=== PATIENT | female | born 1990 | race African-American/Black ===

== ENCOUNTER 2019-06-09 11:12 | Inpatient (IN) | payer OTHER ==
--- NOTE | 2019-06-09 11:26 | PDOC ---
Rapid Medical Evaluation Time Seen by Provider: 06/09/19 11:24 Medical Evaluation: Allergies Allergy/AdvReac Type Severity Reaction Status Date / Time No Known Drug Allergies Allergy Verified 06/23/13 12:51 Vital Signs Temp Pulse Resp BP Pulse Ox 98.3 F 89 18 135/83 99 06/09/19 11:19 06/09/19 11:19 06/09/19 11:19 06/09/19 11:19 06/09/19 11:19 06/09/19 11:24 Patient is 29F here today with goiter, weight loss. Recently admitted to [facility] for goiter. Unsure, but patient thought she was due to get surgery and carotid. Left AMA and came here. Exam notable for goiter. Vitals normal and stable. Patient to main ED. Discharge Disposition - Diagnosis Goiter - Discharge Dispostion Condition at time of disposition: Stable - Referrals - Patient Instructions - Post Discharge Activity
[2019-06-09 12:30] LABS: HEMATOCRIT 33.1 % (32.4-45.2); HEMOGLOBIN 10.8 GM/dL (10.7-15.3); MCH 25.3 pg (25.7-33.7); MCHC 32.5 g/dl (32.0-36.0); MEAN CELL VOLUME 77.8 fl (80-96); MEAN PLT VOLUME 11.5 fl (7.5-11.1); PLATELET COUNT 244 K/MM3 (134-434); RBC 4.26 M/mm3 (3.60-5.2); RDW 14.4 % (11.6-15.6); WHITE BLOOD COUNT 5.9 K/mm3 (4.0-10.0)
--- NOTE | 2019-06-09 13:05 | PDOC ---
History of Present Illness - General Chief Complaint: Head/Neck problem Stated Complaint: THYROID PROBLEM Time Seen by Provider: 06/09/19 11:24 History Source: Patient Exam Limitations: No Limitations - History of Present Illness Initial Comments: 29 yo F with no past medical history presents with confirmed diagnosis of hyperthyroidism from [facility]. Per the patient, she left [facility] today because of inability to wait for consultation by the stonework supervisor. She states that when she left the facility, she was not provided with medications, thus is concerned of not having controlled hyperthyroidism. Currently, the patient has no symptoms, but earlier did have intermittent SOB and palpitations that terminated on their own. Per the patient, she denies the following: ingestion of levothyroxine, flight of ideas, fevers, chills, headache, nausea, vomiting, chest pain, abdominal pain, dysuria, and leg pain/swelling. Allergies: NKDA Past History - Past Medical History Allergies/Adverse Reactions: Allergies Allergy/AdvReac Type Severity Reaction Status Date / Time No Known Drug Allergies Allergy Verified 06/09/19 11:24 Home Medications: Ambulatory Orders No Home Medications 0 dose .ROUTE UTDICT 06/23/13 Acetaminophen [Tylenol .Regular Strength -] 650 mg PO Q4H PRN tablet 06/10/19 Methimazole [Tapazole -] 10 mg PO TID #90 tablet 06/10/19 propRANOLol HCL [Inderal -] 10 mg PO TID #90 tablet 06/10/19 Anemia: No Asthma: No Cancer: No Cardiac Disorders: No CVA: No COPD: No CHF: No Dementia: No Diabetes: No GI Disorders: No Disorders: No HTN: No Hypercholesterolemia: No Liver Disease: No Seizures: No Thyroid Disease: No - Reproductive History (#): 3 Para: 1 Therapeutic (s) & number: Yes (1) Spontaneous : 1 - Psycho Social/Smoking Cessation Hx Smoking History: Never smoked Have you smoked in the past 12 months: No Number of Cigarettes Smoked Daily: 0 Hx Alcohol Use: No Drug/Substance Use Hx: Yes (MARIJUANA) Substance Use Type: None Hx Substance Use Treatment: No Review of Systems - Review of Systems Able to Perform ROS?: Yes Is the patient limited Mohawk proficient: No Constitutional: No: Chills, Diaphoresis, Fever, Weakness HEENTM: Yes: Throat Swelling (goiter noted). No: Eye Pain, Ear Pain, Nose Pain , Throat Pain, Mouth Pain Respiratory: No: Cough, Shortness of Breath, Hemoptysis Cardiac (ROS): Yes: Palpitations. No: Chest Pain, Lightheadedness, Chest Tightness ABD/GI: No: Constipated, Diarrhea, Nausea, Rectal Bleeding, Vomiting, Tarry Stools : No: Burning, Dysuria, Hematuria Musculoskeletal: No: Back Pain, Joint Pain, Neck Pain Integumentary: No: Bruising, Erythema, Rash Neurological: No: Headache, Numbness, Tingling, Tremors Psychiatric: No: Change in Appetite Endocrine: No: Unexplained Weight Loss Hematologic/Lymphatic: No: Anemia *Physical Exam - Vital Signs Last Vital Signs Temp Pulse Resp BP Pulse Ox 98.3 F 89 18 135/83 99 06/09/19 11:19 06/09/19 11:19 06/09/19 11:19 06/09/19 11:19 06/09/19 11:19 - Physical Exam General Appearance: Yes: Nourished, Appropriately Dressed, Other (no exopthalmous. fine tremor noted in the hands bilaterally). No: Apparent Distress, Intoxicated HEENT: positive: EOMI, CALVIN, Normal ENT Inspection, Normal Voice, Symmetrical, TMs Normal, Pharynx Normal, Hearing Grossly Normal. negative: Pale Conjunctivae , Scleral Icterus (R), Scleral Icterus (L), Muffled/Hoarse voice, Pharyngeal Erythema, Tonsillar Exudate, Tonsillar Erythema, Nasal Congestion, Rhinorrhea, Excessive drooling Neck: positive: Trachea midline, Supple. negative: Tender, Normal Thyroid ( large goiter noted), Lymphadenopathy (R), Lymphadenopathy (L) Respiratory/Chest: positive: Lungs Clear, Normal Breath Sounds. negative: Chest Tender, Respiratory Distress, Accessory Muscle Use, Rhonchi, Stridor, Wheezing Cardiovascular: positive: Regular Rhythm, Regular Rate, S1, S2. negative: Systolic Murmur Gastrointestinal/Abdominal: positive: Normal Bowel Sounds, Flat, Soft. negative : Tender, Distended, Guarding, Rebound Lymphatic: negative: Adenopathy Musculoskeletal: positive: Normal Inspection. negative: CVA Tenderness, Vertebral Tenderness Extremity: positive: Normal Capillary Refill, Normal Inspection, Normal Range of Motion. negative: Tender, Swelling, Calf Tenderness Integumentary: positive: Normal Color, Dry, Warm. negative: Swelling, Ecchymosis Neurologic: positive: Fully Oriented, Alert, Normal Mood/Affect, Motor Strength 5/5. negative: EOM Palsy, Facial Droop, Numbness, Sensory Deficit ED Treatment Course - LABORATORY CBC & Chemistry Diagram: 06/10/19 07:20 06/10/19 07:20 - ADDITIONAL ORDERS Additional order review: 06/09/19 11:22 RBC 4.26 MCV 77.8 L MCHC 32.5 RDW 14.4 MPV 11.5 H Medical Decision Making - Medical Decision Making 29 yo F with no past medical history presents with confirmed diagnosis of hyperthyroidism from [facility]. Per the patient, she left [facility] today because of inability to wait for consultation by the stonework supervisor. Initial vitals: Initial Vital Signs Temp Pulse Resp BP Pulse Ox 98.3 F 89 18 135/83 99 06/09/19 11:19 06/09/19 11:19 06/09/19 11:19 06/09/19 11:19 06/09/19 11:19 Work up; ddx: thyroid storm vs hyperthyroidism vs thyroiditis vs graves Laboratory Tests 06/09/19 06/09/19 11:22 11:26 WBC 5.9 RBC 4.26 Hgb 10.8 Hct 33.1 MCV 77.8 L MCH 25.3 L D MCHC 32.5 RDW 14.4 Plt Count 244 MPV 11.5 H Sodium 138 Potassium 4.3 Chloride 107 Carbon Dioxide 26 Anion Gap 5 L BUN 9.3 Creatinine 0.4 L Est GFR (CKD-EPI)AfAm 161.99 Est GFR (CKD-EPI)NonAf 139.77 Random Glucose 88 Calcium 9.1 Total Bilirubin 0.5 AST 37 ALT 40 Alkaline Phosphatase 160 H Total Protein 7.5 Albumin 2.9 L TSH 0.01 L Free T4 2.98 H free T4 is 2.98 with TSH 0.01. Patient is in hyperthyroidism but not storm. Will admit patient for further management and optimization. Discharge - Discharge Information Problems reviewed: Yes Clinical Impression/Diagnosis: Goiter Condition: Stable - Follow up/Referral - Patient Discharge Instructions - Post Discharge Activity
[2019-06-09 13:12] LABS: ALBUMIN 2.9 g/dl (3.4-5.0); BILIRUBIN,TOTAL 0.5 mg/dL (0.2-1); BLOOD UREA NITROGEN 9.3 mg/dL (7-18); CALCIUM 9.1 mg/dL (8.5-10.1); CREATININE 0.4 mg/dL (0.55-1.3); POTASSIUM 4.3 mmol/L (3.5-5.1); TOT PROT 7.5 g/dl (6.4-8.2)
--- NOTE | 2019-06-09 13:33 | PDOC ---
Attending Attestation - Resident Resident Name: Scott Wilson - ED Attending Attestation I have performed the following: I have examined & evaluated the patient, The case was reviewed & discussed with the resident, I agree w/resident's findings & plan, Exceptions are as noted - HPI HPI: 06/09/19 14:05 29y F no pmhx presents with hyperthyroidism - [facility] and came here - frustration dueto wait to see endcrinology. pt states sh was given propanolol but doesnt think she was started on any thyroid medicine. Pt denies any current complaints, states she had notcied throat swelling for the past year or so and with palpitations and sob. but currently feels well. GENERAL: The patient is awake, alert, and fully oriented, Nontoxic - in no acute distress. HEAD: Normocephalic, atraumatic. EYES: extraocular movements intact, sclera anicteric, conjunctiva clear. ENT: Normal voice, Moist mucous membranes. NECK: Normal range of motion, supple, +goiter LUNGS: Breath sounds equal, clear to auscultation bilaterally. No wheezes, no rhonchi, no rales. HEART: Regular rate and rhythm, without murmur, rub or gallop. ABDOMEN: Soft, nontender, No guarding, no rebound.No CVA tenderness EXTREMITIES: Normal range of motion, no edema. No cyanosis. No erythema, or tenderness. NEUROLOGICAL: No facial assymetry, Normal speech, PSYCH: Normal mood, normal affect. SKIN: Warm, Dry, normal turgor suspect pt has partially treatment of thyroid storm/hyperthroidism will admit for further management - Physicial Exam PE: 06/15/19 07:28 see above - Medical Decision Making 06/09/19 15:06 case dw inpatient team accepted for admission for further management Heart Score/ECG Review - ECG Impressions Comment:: 06/09/19 14:12 EKG sinus rhthm, rate of [address] wave changes sugestive of acute ischemia
--- NOTE | 2019-06-09 15:02 | HP ---
Admitting History and Physical - Primary Care Physician PCP: Dima Davis - Admission Chief Complaint: Hyperthyroidism History of Present Illness: Patient is a 29 y/o female with no significant past medical history. She originally presented to [facility] ER with complaints of palpitations and difficulty breathing. While in [facility] she was noted with low TSH and admitted for Hyperthyroidism. She was started on propanolol for her palpitations and tachycardia. She states that while there she was not seen by an Rides Attendant and would not see one until tomorrow so she signed out AMA and came to [facility] ER. In ER noted with TSH 0.01 and T4 2.98. Denies palpitations , chest pain, SOB, dizziness. History Source: Patient Limitations to Obtaining History: No Limitations - Past Medical History ...LMP: 04/19/12 Endocrine: Yes: Hyperthyroidism - Past Surgical History Past Surgical History: Yes: None - Smoking History Smoking history: Never smoked Have you smoked in the past 12 months: No Aproximately how many cigarettes per day: 0 - Alcohol/Substance Use Hx Alcohol Use: No - Social History ADL: Independent History of Recent Travel: No Home Medications - Allergies Allergies/Adverse Reactions: Allergies Allergy/AdvReac Type Severity Reaction Status Date / Time No Known Drug Allergies Allergy Verified 06/09/19 11:24 - Home Medications Home Medications: Ambulatory Orders No Home Medications 0 dose .ROUTE UTDICT 06/23/13 Review of Systems - Review of Systems Constitutional: reports: Loss of Appetite, Unintentional Wgt. Loss Eyes: reports: No Symptoms HENT: reports: No Symptoms Neck: reports: Other (goiter) Cardiovascular: reports: No Symptoms Respiratory: reports: Cough Gastrointestinal: reports: Diarrhea Genitourinary: reports: No Symptoms Breasts: reports: No Symptoms Reported Musculoskeletal: reports: No Symptoms Integumentary: reports: No Symptoms Neurological: reports: No Symptoms Endocrine: reports: Excessive Sweating, Increased Hunger, Increased Thirst, Unexplained Weight Loss Hematology/Lymphatic: reports: No Symptoms Psychiatric: reports: No Symptoms Physical Examination Vital Signs: Vital Signs Temperature 98.3 F 06/09/19 11:19 Pulse Rate 89 06/09/19 11:19 Respiratory Rate 18 06/09/19 11:19 Blood Pressure 135/83 06/09/19 11:19 O2 Sat by Pulse Oximetry (%) 99 06/09/19 11:19 Constitutional: Yes: No Distress, Calm Eyes: Yes: Conjunctiva Clear HENT: Yes: Atraumatic Neck: Yes: Other (goiter) Cardiovascular: Yes: Regular Rate and Rhythm Respiratory: Yes: Regular Gastrointestinal: Yes: Normal Bowel Sounds, Soft Musculoskeletal: Yes: WNL Extremities: Yes: WNL Edema: No Neurological: Yes: Alert, Oriented Psychiatric: Yes: Alert, Oriented Labs: CBC, BMP 06/09/19 11:22 06/09/19 11:26 Problem List - Problems (1) Hyperthyroidism Assessment/Plan: -Endocrinology consult -TSH 0.01 and TSH 2.98 -Thryoid US Code(s): E05.90 - THYROTOXICOSIS, UNSP WITHOUT THYROTOXIC CRISIS OR STORM (2) Goiter Assessment/Plan: -Endocrinology consult -TSH 0.01 and TSH 2.98 -Thryoid US Code(s): E04.9 - NONTOXIC GOITER, UNSPECIFIED
[2019-06-09] MEDS ORDERED: ACETAMINOPHEN 325 MG TABLET (FP) PO PRN (15:05)
[2019-06-09 18:49] VITALS: BMI 27.6
[2019-06-09] MEDS: HEPARIN NA (PORCINE) 5,000 UNITS/ML 1ML VIAL SQ SCH (21:30)
[2019-06-09] MEDS: METHIMAZOLE 10 MG TABLET (FP) PO SCH (21:58)
--- NOTE | 2019-06-10 01:00 | CONSULT ---
Consult Consult Specialty:: Endocrine Referred by:: Aubrey RM Reason for Consultation:: Hyperthyroidism - History of Present Illness Chief Complaint: palpitation and sweats History of Present Illness: 29 y/o female with no significant past medical history. has had recent 40lb weight loss,palpitation,anxiety,tremors,difficulty concentrating,found to have hyperthyroidism.she denies chest pain,fever,cough,nausea or vomiting. - Past Medical History ...LMP: 05/22/19 Endocrine: Yes: Hyperthyroidism - Past Surgical History Past Surgical History: Yes: None - Alcohol/Substance Use Hx Alcohol Use: No - Smoking History Smoking history: Never smoked Have you smoked in the past 12 months: No Aproximately how many cigarettes per day: 0 - Social History ADL: Independent History of Recent Travel: No Home Medications - Allergies Allergies/Adverse Reactions: Allergies Allergy/AdvReac Type Severity Reaction Status Date / Time No Known Drug Allergies Allergy Verified 06/09/19 11:24 - Home Medications Home Medications: Ambulatory Orders No Home Medications 0 dose .ROUTE UTDICT 06/23/13 Review of Systems - Review of Systems Constitutional: reports: Unintentional Wgt. Loss Eyes: reports: No Symptoms HENT: reports: No Symptoms Neck: reports: No Symptoms Cardiovascular: reports: Palpitations, Shortness of Breath Respiratory: reports: Exercise Intolerance, SOB on Exertion Gastrointestinal: reports: No Symptoms Genitourinary: reports: No Symptoms Musculoskeletal: reports: Muscle Cramps Neurological: reports: Tremors, Weakness Endocrine: reports: Intolerance to Heat, Unexplained Weight Loss Physical Exam Vital Signs: Vital Signs Temperature 97.8 F 06/09/19 23:00 Pulse Rate 93 H 06/09/19 23:00 Respiratory Rate 18 06/09/19 23:00 Blood Pressure 138/83 06/09/19 23:00 O2 Sat by Pulse Oximetry (%) 99 06/09/19 21:00 Constitutional: Yes: Anxious Eyes: Yes: EOM Intact HENT: Yes: Normocephalic Neck: Yes: Thyromegaly Cardiovascular: Yes: Tachycardia Respiratory: Yes: CTA Bilaterally Gastrointestinal: Yes: Normal Bowel Sounds ...Rectal Exam: Yes: Deferred Renal/: Yes: WNL Musculoskeletal: Yes: Muscle Weakness Extremities: Yes: WNL Edema: No Neurological: Yes: Alert, Oriented, Tremors Labs: CBC, BMP 06/09/19 11:22 06/09/19 11:26 Problem List - Problems (1) Goiter Problems reviewed: Yes Code(s): E04.9 - NONTOXIC GOITER, UNSPECIFIED (2) Hyperthyroidism Problems reviewed: Yes Code(s): E05.90 - THYROTOXICOSIS, UNSP WITHOUT THYROTOXIC CRISIS OR STORM (3) demise Problems reviewed: Yes Code(s): PNS3536 - Assessment/Plan Current Active Problems Goiter (Acute) Hyperthyroidism (Acute) Abnormal Lab Results 06/09/19 06/09/19 11:22 11:26 MCV 77.8 L MCH 25.3 L D MPV 11.5 H Anion Gap 5 L Creatinine 0.4 L Alkaline Phosphatase 160 H Albumin 2.9 L TSH 0.01 L Free T4 2.98 H plan: start methimazole 10mg tid propranolo 10mg tid follow up tsh free t4 outpatient
[2019-06-10] MEDS: METHIMAZOLE 10 MG TABLET (FP) PO SCH (05:47)
[2019-06-10 08:19] LABS: BASO % 0.2 % (0-2.0); EOS % 5.9 % (0-4.5); HEMATOCRIT 30.6 % (32.4-45.2); HEMOGLOBIN 10.3 GM/dL (10.7-15.3); LYMPH % 35.6 % (8-40); MCHC 33.6 g/dl (32.0-36.0); MEAN CELL VOLUME 77.5 fl (80-96); MEAN PLT VOLUME 11.3 fl (7.5-11.1); MONO % 8.4 % (3.8-10.2); NEUT % 49.9 % (42.8-82.8); PLATELET COUNT 214 K/MM3 (134-434); RBC 3.95 M/mm3 (3.60-5.2)
[2019-06-10 08:56] LABS: ALBUMIN 2.7 g/dl (3.4-5.0); BILIRUBIN,TOTAL 0.5 mg/dL (0.2-1); BLOOD UREA NITROGEN 10.1 mg/dL (7-18); CALCIUM 8.9 mg/dL (8.5-10.1); CREATININE 0.3 mg/dL (0.55-1.3); MAGNESIUM 1.7 mg/dL (1.8-2.4); PHOSPHOROUS 4.4 mg/dL (2.5-4.9); POTASSIUM 3.8 mmol/L (3.5-5.1); TOT PROT 6.8 g/dl (6.4-8.2)
[2019-06-10] MEDS: HEPARIN NA (PORCINE) 5,000 UNITS/ML 1ML VIAL SQ SCH (09:56)
--- NOTE | 2019-06-10 10:43 | EKG ---
Test Reason : Blood Pressure : / mmHG Vent. Rate : 089 BPM Atrial Rate : 089 BPM P-R Int : 160 ms QRS Dur : 086 ms QT Int : 396 ms P-R-T Axes : 067 042 051 degrees QTc Int : 481 ms NORMAL SINUS RHYTHM BIATRIAL ENLARGEMENT LEFT VENTRICULAR HYPERTROPHY PROLONGED QT ABNORMAL ECG NO PREVIOUS ECGS AVAILABLE Confirmed by TERRY UP MD ([id number]) on 06/10/2019 10:43:12 AM Referred By: Confirmed By:TERRY UP MD
--- NOTE | 2019-06-10 10:44 | DS ---
Physical Examination Vital Signs: Vital Signs Temperature 97.6 F 06/10/19 05:00 Pulse Rate 96 H 06/10/19 05:00 Respiratory Rate 06/10/19 05:00 Blood Pressure 123/67 06/10/19 05:00 O2 Sat by Pulse Oximetry (%) 99 06/09/19 21:00 Findings/Remarks: EVENTS AND NOTES REVIEWED DENIES CP/SOB Constitutional: Yes: No Distress Cardiovascular: Yes: Regular Rate and Rhythm Respiratory: Yes: WNL Gastrointestinal: Yes: WNL Renal/: Yes: WNL Musculoskeletal: Yes: WNL Extremities: Yes: WNL Edema: No Labs: CBC, BMP 06/10/19 07:20 06/10/19 07:20 Discharge Summary Problems reviewed: Yes Reason For Visit: GOITER Current Active Problems Goiter (Acute) Hyperthyroidism (Acute) Procedures: Principal: LABS/XRAYS Hospital Course: ADMITTED ACUTE THYROID STORM TREATED AND F/U OUTPATIENT Plan of Treatment: PROPANOLOL AND TAPAZOLE TID SEE YOUR PRIMARY DOCTOR AND ENDOCRINE SPECIALIST IN 1 WEEK Condition: Stable - Instructions Diet, Activity, Other Instructions: SEE YOUR PRIMARY DOCTOR IN 1 WEEK AND SPECIALIST FOR ENDOCRINOLOGY Referrals: Dima Davis [Primary Care Provider] - Disposition: HOME - Home Medications Comprehensive Discharge Medication List: Ambulatory Orders No Home Medications 0 dose .ROUTE UTDICT 06/23/13 Acetaminophen [Tylenol .Regular Strength -] 650 mg PO Q4H PRN tablet 06/10/19 Methimazole [Tapazole -] 10 mg PO TID #90 tablet 06/10/19 propRANOLol HCL [Inderal -] 10 mg PO TID #90 tablet 06/10/19
[2019-06-10 11:24] VITALS: BP 114/77; PULSE 89; TEMP 98.4
== END 2019-06-10 11:26 | disposition home or self-care (01) | DRG 424 ==
LOC: JER 11:12 → JERBED 14:25 → J8W 17:53
PROVIDERS: ADMIT Family Medicine; ATTEND Family Medicine
DX: E05.01 Thyrotoxicosis with diffuse goiter with thyrotoxic crisis or storm (principal); R00.2 Palpitations; R63.4 Abnormal weight loss; R00.0 Tachycardia, unspecified
CPT/HCPCS: 36415; 71046-TC-FY; 80053; 83735; 84100; 84436; 84439; 84443; 84703; 85025; 85027; 93005; 93010; 99285-25; J1644

== ENCOUNTER 2021-03-22 18:15 | Inpatient (IN) | payer OTHER ==
[2021-03-22 19:03] VITALS: BMI 33.5
[2021-03-22] MEDS ORDERED: METOCLOPRAMIDE HCL INJECTION 10 MG/2 ML VIAL IVPB ONE (19:31)
[2021-03-22] MEDS ORDERED: SODIUM CHLORIDE 0.9% 500 ML INFUS.BAG IV ONE (19:31)
[2021-03-22] MEDS ORDERED: ACETAMINOPHEN 1000 MG/100 ML VIAL IVPB ONE (19:31)
[2021-03-22] MEDS ORDERED: METOCLOPRAMIDE HCL INJECTION 10 MG/2 ML VIAL ONE (19:37)
[2021-03-22] MEDS ORDERED: ACETAMINOPHEN INJECTION 100 ML IVPB ONE (19:38)
[2021-03-22 19:54] LABS: VENOUS BASE EXCESS -3.1 mmol/L (-2-2); VENOUS O2 SATURATION 87.9 % (70-80); VENOUS PH 7.353 (7.310-7.410)
[2021-03-22 19:58] LABS: BASO % 0.3 % (0-2.0); EOS % 2.2 % (0-4.5); HEMATOCRIT 32.9 % (32.4-45.2); HEMOGLOBIN 10.9 GM/dL (10.7-15.3); LYMPH % 31.6 % (8-40); MCH 26.4 pg (25.7-33.7); MCHC 33.1 g/dl (32.0-36.0); MEAN CELL VOLUME 79.6 fl (80-96); MEAN PLT VOLUME 10.4 fl (7.5-11.1); MONO % 7.2 % (3.8-10.2); NEUT % 58.7 % (42.8-82.8); PLATELET COUNT 223 10^3/uL (134-434); RBC 4.13 M/mm3 (3.60-5.2); RDW 14.4 % (11.6-15.6); WHITE BLOOD COUNT 4.7 K/mm3 (4.0-10.0)
[2021-03-22 20:12] LABS: INR 1.09 (0.83-1.09); PROTHROMBIN TIME (PATIENT) 12.8 SEC (9.7-13.0)
[2021-03-22 20:15] LABS: CHLORIDE 112 mmol/L (98-107); SODIUM 141 mmol/L (136-145)
[2021-03-22 20:18] LABS: ALBUMIN 3.1 g/dl (3.4-5.0); ANION GAP 7 MMOL/L (8-16); BLOOD UREA NITROGEN 9.1 mg/dL (7-18); CO2 23 mmol/L (21-32); GLUCOSE,RANDOM 103 mg/dL (74-106)
[2021-03-22 20:21] LABS: BILIRUBIN,DIRECT 0.2 mg/dL (0.0-0.2); CREATININE 0.5 mg/dL (0.55-1.3); SGOT/AST 22 U/L (15-37); SGPT/ALT 39 U/L (13-61)
[2021-03-22 20:23] LABS: BILIRUBIN,TOTAL 0.3 mg/dL (0.2-1); TOT PROT 7.4 g/dl (6.4-8.2)
[2021-03-22 20:24] LABS: ALK PHOS 107 U/L (45-117)
[2021-03-22 20:27] LABS: N-TERMINAL BNP 2057.4 pg/ml (5-125)
[2021-03-22] MEDS ORDERED: ATENOLOL 25 MG TABLET (FP) PO ONE (21:12)
[2021-03-22] MEDS ORDERED: METHIMAZOLE 10 MG TABLET PO SCH (21:15)
[2021-03-22] MEDS ORDERED: ATENOLOL 25 MG TABLET (FP) ONE (21:49)
[2021-03-22] MEDS ORDERED: PENICILLIN V POTASSIUM 500 MG TABLET PO ONE (22:56)
[2021-03-23] MEDS ORDERED: ACETAMINOPHEN 1000 MG/100 ML VIAL IVPB ONE (01:06)
[2021-03-23] MEDS ORDERED: PT OWN MED DRAWER 7, Y5N ONE ×3 (06:30→21:16)
[2021-03-23] MEDS: METHIMAZOLE 10 MG TABLET PO SCH ×3 (06:54→21:21)
[2021-03-23 07:34] LABS: HEMATOCRIT 29.8 % (32.4-45.2); HEMOGLOBIN 9.9 GM/dL (10.7-15.3); MCH 26.6 pg (25.7-33.7); MCHC 33.3 g/dl (32.0-36.0); MEAN CELL VOLUME 80.1 fl (80-96); MEAN PLT VOLUME 10.1 fl (7.5-11.1); PLATELET COUNT 202 10^3/uL (134-434); RBC 3.72 M/mm3 (3.60-5.2); WHITE BLOOD COUNT 4.9 K/mm3 (4.0-10.0)
[2021-03-23 08:08] LABS: ALBUMIN 2.7 g/dl (3.4-5.0); CALCIUM 8.6 mg/dL (8.5-10.1)
[2021-03-23 08:09] LABS: BLOOD UREA NITROGEN 7.2 mg/dL (7-18)
[2021-03-23 08:12] LABS: BILIRUBIN,TOTAL 0.4 mg/dL (0.2-1); CHOLESTEROL 123 mg/dL (50-200); CREATININE 0.4 mg/dL (0.55-1.3); PHOSPHOROUS 3.7 mg/dL (2.5-4.9)
[2021-03-23 08:13] LABS: TOT PROT 6.5 g/dl (6.4-8.2)
[2021-03-23 08:14] LABS: LDL CHOLESTEROL (ONLY SJRH) 62 mg/dL (5-100); TRIGLYCERIDES 70 mg/dL (0-150)
[2021-03-23 08:16] LABS: HDL CHOLESTEROL 44 mg/dL (40-60)
[2021-03-23 08:17] LABS: MAGNESIUM 1.8 mg/dL (1.8-2.4)
[2021-03-23] MEDS ORDERED: FLU VACC QS2021-22(6MOS UP)/PF 60 MCG/0.5 ML SYRINGE IM ONE (10:00)
[2021-03-23] MEDS ORDERED: ATENOLOL 25 MG TABLET (FP) PO SCH (10:00)
[2021-03-23] MEDS ORDERED: ACETAMINOPHEN 325 MG TABLET (FP) PO PRN (10:37)
[2021-03-23] MEDS: ENOXAPARIN NA (PORCINE) 40 MG/0.4 ML DISP.SYRIN SQ SCH (10:53)
[2021-03-23] MEDS: ACETAMINOPHEN 1000 MG/100 ML VIAL IVPB PRN ×2 (10:54→22:56)
[2021-03-23] MEDS: KCL 10 MEQ IVPB 10 MEQ/100 ML INFUS.BAG IVPB SCH ×3 (11:03→13:57)
[2021-03-23] MEDS ORDERED: POTASSIUM CHLORIDE TABS 20 MEQ TABLET.ER (FP) PO ONE (12:32)
[2021-03-23] MEDS: IBUPROFEN 400 MG TABLET (FP) PO PRN (16:25)
[2021-03-23] MEDS: ACETAMINOPHEN 325 MG TABLET (FP) PO PRN (16:25)
[2021-03-23] MEDS ORDERED: MAG HYDROX/ALH/SMC/DPHA/LIDO 240 ML MOUTHWASH MM PRN ×2 (16:35→16:54)
[2021-03-23 18:47] LABS: URINE BARBITURATES NEGATIVE (NEGATIVE)
[2021-03-23 18:48] LABS: METHADONE, UR NEGATIVE (NEGATIVE); OPIATES, URI NEGATIVE (NEGATIVE); PHENCYCLIDINE,URINE NEGATIVE (NEGATIVE); URINE BENZODIAZEPINES NEGATIVE (NEGATIVE)
[2021-03-23 18:49] LABS: COCAINE, UR NEGATIVE (NEGATIVE); URINE AMPHETAMINES NEGATIVE (NEGATIVE)
[2021-03-23 18:50] LABS: URINE APPEARANCE CLEAR; URINE BILIRUBIN NEGATIVE (NEGATIVE); URINE COLOR YELLOW; URINE GLUCOSE (UA) NEGATIVE (NEGATIVE); URINE KETONE NEGATIVE (NEGATIVE); URINE LEUK ESTERASE NEGATIVE (NEGATIVE); URINE NITRITE NEGATIVE (NEGATIVE); URINE PROTEIN TRACE (NEGATIVE); URINE UROBILINOGEN 0.2 mg/dL (0.2-1.0)
[2021-03-23] MEDS ORDERED: MELATONIN 5 MG TABLETS PO ONE (21:01)
[2021-03-24] MEDS: IBUPROFEN 400 MG TABLET (FP) PO PRN ×3 (03:52→15:58)
[2021-03-24] MEDS: ACETAMINOPHEN 325 MG TABLET (FP) PO PRN ×2 (03:53→15:57)
[2021-03-24] MEDS ORDERED: PT OWN MED DRAWER 7, Y5N ONE ×2 (05:30→08:32)
[2021-03-24] MEDS: METHIMAZOLE 10 MG TABLET PO SCH ×2 (05:54→13:48)
[2021-03-24] MEDS ORDERED: propRANOLol HCL 10 MG TABLET PO SCH (08:00)
[2021-03-24] MEDS ORDERED: ACETAMINOPHEN 325 MG TABLET (FP) PO ONE (08:27)
[2021-03-24 09:32] LABS: HEMATOCRIT 31.2 % (32.4-45.2); HEMOGLOBIN 10.5 GM/dL (10.7-15.3); MCH 26.1 pg (25.7-33.7); MCHC 33.8 g/dl (32.0-36.0); MEAN CELL VOLUME 77.3 fl (80-96); PLATELET COUNT 217 10^3/uL (134-434); RBC 4.03 M/mm3 (3.60-5.2); RDW 13.9 % (11.6-15.6); WHITE BLOOD COUNT 4.9 K/mm3 (4.0-10.0)
[2021-03-24 09:48] LABS: BLOOD UREA NITROGEN 8.9 mg/dL (7-18); CALCIUM 8.6 mg/dL (8.5-10.1)
[2021-03-24 09:50] LABS: MAGNESIUM 1.7 mg/dL (1.8-2.4)
[2021-03-24 09:52] LABS: CREATININE 0.5 mg/dL (0.55-1.3); PHOSPHOROUS 3.7 mg/dL (2.5-4.9)
[2021-03-24] MEDS: ENOXAPARIN NA (PORCINE) 40 MG/0.4 ML DISP.SYRIN SQ SCH (10:52)
[2021-03-24 14:00] VITALS: TEMP 98.6
[2021-03-24 15:07] VITALS: BP 133/92; PULSE 88
[2021-03-24] MEDS: MAGNESIUM 1GM/D5W 100ML - 100 ML IVPB IVPB ONE ×2 (15:59→16:47)
[2021-03-24] MEDS ORDERED: MAGNESIUM OXIDE 400 MG TABLET (FP) PO ONE (16:44)
== END 2021-03-24 18:30 | disposition home or self-care (01) | DRG 424 ==
LOC: JER 18:15 → JERBED 22:15 → J4S 03-23 02:00
PROVIDERS: ADMIT Internal Medicine; ATTEND Internal Medicine
DX: E05.90 Thyrotoxicosis, unspecified without thyrotoxic crisis or storm (principal); R55 Syncope and collapse; I25.10 Atherosclerotic heart disease of native coronary artery without angina pectoris; R91.1 Solitary pulmonary nodule; J06.9 Acute upper respiratory infection, unspecified; K02.9 Dental caries, unspecified; K04.7 Periapical abscess without sinus; I10 Essential (primary) hypertension; E04.1 Nontoxic single thyroid nodule; R00.0 Tachycardia, unspecified; E04.9 Nontoxic goiter, unspecified
CPT/HCPCS: 36415; 70450-TC; 70486-TC; 71045-TC-FY; 71250-TC; 80048; 80053; 80061; 80307; 81003; 82248; 82550; 82728; 82803; 83036; 83605; 83615; 83735; 83880; 84100; 84439; 84443; 84484; 84703; 85025; 85027; 85379; 85610; 85730; 86140; 87804; 90686; 93005; 93010; 93306-TC; 93880-TC; 99285-25; C9803; J0131; U0003; U0005

== ENCOUNTER 2023-11-17 15:47 | Emergency (ER) | payer OTHER ==
[2023-11-17 15:59] VITALS: BP 137/91; PULSE 91; RESP 20; TEMP 98.3; BMI 32.8
[2023-11-17 17:28] LABS: BASO % 0.8 % (0-2.0); EOS % 1.2 % (0-4.5); HEMATOCRIT 36.3 % (32.4-45.2); HEMOGLOBIN 12.2 GM/dL (10.7-15.3); LYMPH % 29.4 % (8-40); MCH 28.4 pg (25.7-33.7); MCHC 33.6 g/dl (32.0-36.0); MEAN CELL VOLUME 84.5 fl (80-96); MEAN PLT VOLUME 10.8 fl (7.5-11.1); MONO % 6.6 % (3.8-10.2); PLATELET COUNT 268 10^3/uL (134-434); RDW 16.3 % (11.6-15.6); VENOUS BASE EXCESS -1.8 mmol/L (-2-2); VENOUS O2 SATURATION 97.9 % (70-80); VENOUS PCO2 35.6 mmHg (38-52); VENOUS PH 7.413 (7.310-7.410)
[2023-11-17] MEDS: SODIUM CHLORIDE 0.9% 500 ML INFUS.BAG IV ONE (17:40)
[2023-11-17] MEDS: ACETAMINOPHEN 1000 MG/100 ML BAG IVPB ONE (17:41)
[2023-11-17 17:49] LABS: ALBUMIN 3.6 g/dl (3.4-5.0); CALCIUM 8.7 mg/dL (8.5-10.1)
[2023-11-17 17:50] LABS: BLOOD UREA NITROGEN 7.8 mg/dL (7-18)
[2023-11-17 17:53] LABS: CREATININE 0.8 mg/dL (0.55-1.3)
[2023-11-17 17:54] LABS: BILIRUBIN,TOTAL 0.8 mg/dL (0.2-1); TOT PROT 8.5 g/dl (6.4-8.2)
[2023-11-17 18:05] LABS: INR 1.07 (0.83-1.09); PROTHROMBIN TIME (PATIENT) 12.3 SEC (9.7-13.0)
== END 2023-11-17 19:37 | disposition home or self-care (01) ==
LOC: JER 15:47
PROC: 3E033NZ Introduction of Analgesics, Hypnotics, Sedatives into Peripheral Vein, Percutaneous Approach (ICD-10-PCS; principal; 2023-11-17)
DX: R06.02 Shortness of breath (principal); R42 Dizziness and giddiness; M79.604 Pain in right leg; Z20.822 Contact with and (suspected) exposure to COVID-19
CPT/HCPCS: 0241U-QW; 36415; 71046-TC-FY; 71275-TC; 80053; 82803; 83735; 84439; 84443; 84484; 84703; 85025; 85610; 85730; 93005; 93010; 99285-25; J0131; Q9967